=== PATIENT | female | born 1950 | race Caucasian/White ===

== ENCOUNTER 2016-11-11 13:21 | Emergency (ER) | payer MEDICARE, BC ==
[2016-11-11] MEDS ORDERED: Aspirin 81 MG Tab.Chew PO ONE (13:26)
[2016-11-11] MEDS ORDERED: Sodium Chloride 0.9% 10 ML Syringe FLUSH PRN (13:26)
[2016-11-11] MEDS: Nitroglycerin 0.4 MG Tab.SL SL PRN ×3 (13:33→13:46)
[2016-11-11 13:47] VITALS: BP 140/73
[2016-11-11] MEDS ORDERED: Heparin Sodium 5,000 Units/ML Vial IVPUSH ONE (14:18)
[2016-11-11] MEDS ORDERED: Heparin Sodium/D5W 25,000 UNITS/500 ML BAG IV SCH (14:30)
[2016-11-11] MEDS ORDERED: Nitroglycerin/D5W 25 MG/250 ML BOTTLE IV SCH (14:30)
--- NOTE | 2016-11-11 14:44 | EDM.PDOC ---
ED HISTORY OF PRESENT ILLNESS - General Chief Complaint: Chest Pain Stated Complaint: CHEST PAIN Time Seen by Provider: 11/11/16 13:25 Source of Information: Reports: Patient, Family History Limitations: Reports: No limitations - History of Present Illness INITIAL COMMENTS - FREE TEXT/NARRATIVE: The patient presents with chest pain that started just before arrival. It is in the center of her chest and it is sharp. She has shortness of breath with it. She has no fever, chills or cough. She says this started on Saturday. She was doing lots of laundry and was taking it outside to hang it up. She had severe chest pain like this and laid down and it went away. She would have chest pain on and off when she exerted herself. This afternoon she just got back from her grandchild's first communion and the pain started. She has no heart problems. She has no HTN. She does have diabetes. She was on metformin but she quit taking it about a year ago. Timing/Duration: Reports: Minutes: Severity: severe Location, General: Reports: chest Quality: Reports: Sharp Improves with: Reports: None Worsens with: Reports: None Context, General: Reports: Other (She was sitting on the couch at a family gathering) Associated Symptoms (General): Reports: chest pain, shortness of breath. Denies : cough, fever/chills, nausea/vomiting - Related Data Allergies/ADRs: Allergies Allergy/AdvReac Type Severity Reaction Status Date / Time Corticosteroids Allergy Swollen Verified 08/13/16 09:51 [employer] (Glucocorticoids) Eyes Home Meds: Home Meds . [No Known Home Meds] 08/12/16 [History] Past Medical History HEENT History: Reports: Cataract, Impaired vision Gastrointestinal History: Reports: None Genitourinary History: Reports: None GM MOBILE History: Reports: - Infectious Disease History Infectious Disease History: Reports: Chicken pox, Measles, Shingles - Past Surgical History HEENT Surgical History: Reports: Cataract surgery, Tonsillectomy GI Surgical History: Reports: Colonoscopy Female Surgical History: Reports: D&C, Tubal ligation Social & Family History - Tobacco Use Smoking Status *Q: Never Smoker Years of Tobacco use: 2 Month Tobacco Last Used: 50 yrs ago - Caffeine Use Caffeine Use: Reports: Soda Other Caffeine Use: alot of coke - Alcohol Use Days Per Week of Alcohol Use: 0 - Recreational Drug Use Recreational Drug Use: No ED ROS GENERAL - Review of Systems Review Of Systems: See Below Constitutional: Reports: no symptoms HEENT: Reports: No symptoms Respiratory: Reports: Shortness of Breath Cardiovascular: Reports: Chest pain Endocrine: Reports: no symptoms GI/Abdominal: Reports: No symptoms : Reports: no symptoms Musculoskeletal: Reports: no symptoms Skin: Reports: no symptoms ED EXAM, GENERAL - Physical Exam Exam: See Below Exam Limited By: No limitations General Appearance: alert, moderate distress Ears: normal external exam Nose: normal inspection Head: atraumatic, normocephalic Neck: normal inspection Respiratory/Chest: no respiratory distress, lungs clear, normal breath sounds Cardiovascular: regular rate, rhythm, no edema, no murmur GI/Abdominal: soft, non tender, no organomegaly, no mass Back Exam: normal inspection Extremities: normal inspection EKG INTERPRETATION EKG Date: 11/11/16 Time: 13:24 Rhythm: NSR Rate (beats/min): 96 [place]: LAD-left axis deviation P-wave: present QRS: normal ST-T: normal QT: normal EKG Interpretation Comments: PAC Course - Vital Signs Last Recorded V/S: Last Vital Signs Temp 97.1 F 11/11/16 13:25 Pulse 94 11/11/16 13:25 Resp 24 H 11/11/16 13:25 BP 140/73 11/11/16 13:46 Pulse Ox 99 11/11/16 13:25 - Orders/Labs/Meds Orders: Active Orders 24 hr Category Date Time Status Cardiac Monitoring [RC] . DIRECTED Care 11/11/16 13:26 Active EKG Documentation Completion [RC] STAT Care 11/11/16 13:26 Active Oxygen Therapy [RC] PRN Care 11/11/16 13:26 Active Peripheral IV Care [RC] . DIRECTED Care 11/11/16 13:26 Active Chest 1V Frontal [CR] Stat Exams 11/11/16 13:27 Taken CBC W/O DIFF,HEMOGRAM [HEME] MOTH@0700 Lab 11/12/16 07:00 Ordered CBC W/O DIFF,HEMOGRAM [HEME] MOTH@0700 Lab 11/15/16 07:00 Ordered CBC W/O DIFF,HEMOGRAM [HEME] MOTH@0700 Lab 11/19/16 07:00 Ordered CBC W/O DIFF,HEMOGRAM [HEME] MOTH@0700 Lab 11/22/16 07:00 Ordered CBC W/O DIFF,HEMOGRAM [HEME] MOTH@0700 Lab 11/26/16 07:00 Ordered CBC W/O DIFF,HEMOGRAM [HEME] MOTH@0700 Lab 11/29/16 07:00 Ordered Heparin Sodium/D5W [Heparin 25,000 Units in D5W 500 ML] Med 11/11/16 14:30 Active 25,000 units in 500 ml IV TITRATE Nitroglycerin [Nitrostat] Med 11/11/16 13:26 Active 0.4 mg SL Q5M PRN Nitroglycerin/D5W [Nitroglycerin 25 MG/D5W 250 ML] Med 11/11/16 14:30 Active 25 mg in 250 ml IV TITRATE Sodium Chloride 0.9% [Saline Flush] Med 11/11/16 13:26 Active 10 ml FLUSH ASDIRECTED PRN Peripheral IV Insertion Adult [OM.PC] Stat Oth 11/11/16 13:26 Ordered Medication Orders Heparin Sodium/Dextrose (Heparin 25,000 Units In D5w 500 Ml) 25,000 units in 500 mls @ 19.686 mls/hr IV TITRATE MARQUES; 14 UNITS/KG/HR PRN Reason: Protocol Nitroglycerin/Dextrose (Nitroglycerin 25 Mg/D5w 250 Ml) 25 mg in 250 mls @ 3 mls/hr IV TITRATE MARQUES PRN Reason: Protocol Last Admin: 11/11/16 14:34 Dose: 3 mls/hr Nitroglycerin (Nitrostat) 0.4 mg SL Q5M PRN PRN Reason: Chest Pain Stop: 11/12/16 13:26 Last Admin: 11/11/16 13:46 Dose: 0.4 mg Admin: 11/11/16 13:40 Dose: 0.4 mg Admin: 11/11/16 13:33 Dose: 0.4 mg Sodium Chloride (Saline Flush) 10 ml FLUSH ASDIRECTED PRN PRN Reason: Keep Vein Open Last Admin: 11/11/16 13:37 Dose: 10 ml Labs: Laboratory Tests 11/11/16 11/11/16 11/11/16 Range/Units 13:30 13:30 13:30 WBC 11.53 H (3.98-10.04) K/mm3 RBC 5.81 H (3.98-5.22) M/mm3 Hgb 16.5 H (11.2-15.7) gm/L Hct 48.0 H (34.1-44.9) % MCV 82.6 (79.4-94.8) fl MCH 28.4 (25.6-32.2) pg MCHC 34.4 (32.2-35.5) g/dl RDW Std Deviation 38.6 (36.4-46.3) fL Plt Count 233 (182-369) K/mm3 MPV 11.1 (9.4-12.3) fl Neut % (Auto) 49.4 (34.0-71.1) % Lymph % (Auto) 39.6 (19.3-51.7) % [place] % (Auto) 10.0 (4.7-12.5) % Eos % (Auto) 0.4 L (0.7-5.8) Baso % (Auto) 0.3 (0.1-1.2) % Neut # (Auto) 5.69 (1.56-6.13) K/mm3 Lymph # (Auto) 4.57 H (1.18-3.74) K/mm3 [place] # (Auto) 1.15 H (0.24-0.36) K/mm3 Eos # (Auto) 0.05 (0.04-0.36) K/mm3 Baso # (Auto) 0.03 (0.01-0.08) K/mm3 D-Dimer, Quantitative 0.23 (0.19-0.59) mg/L Sodium 132 L (136-145) mEq/L Potassium 4.0 (3.5-5.1) mEq/L Chloride 95 L (98-107) mEq/L Carbon Dioxide 22 (21-32) mEq/L Anion Gap 19.0 H (5-15) BUN 14 (7-18) mg/dL Creatinine 1.1 H (0.55-1.02) mg/dL Est Cr Clr Drug Dosing TNP Estimated GFR (MDRD) 49 (>60) mL/min BUN/Creatinine Ratio 12.7 L (14-18) Glucose 472 H (80-115) mg/dL Calcium 10.3 H (8.5-10.1) mg/dL Total Bilirubin 0.5 (0.2-1.0) mg/dL AST 21 (15-37) U/L ALT 23 (14-59) U/L Alkaline Phosphatase 99 (46-116) U/L Troponin I 1.071 H* (0.00-0.056) ng/mL Total Protein 8.5 H (6.4-8.2) g/dl Albumin 4.1 (3.4-5.0) g/dl Globulin 4.4 gm/dL Albumin/Globulin Ratio 0.9 L (1-2) Meds: Medications Generic Name Dose Route Start Last Admin Trade Name Sarah PRN Reason Stop Dose Admin Heparin Sodium/Dextrose 25,000 units in 500 mls @ 19.686 mls/hr 11/11/16 14: 30 Heparin 25,000 Units In D5w 500 Ml IV TITRATE MARQUES Protocol 14 UNITS/KG/HR Nitroglycerin/Dextrose 25 mg in 250 mls @ 3 mls/hr 11/11/16 14:30 11/11/16 14 :34 Nitroglycerin 25 Mg/D5w 250 Ml IV 3 mls/hr TITRATE MARQUES Administration Protocol Nitroglycerin 0.4 mg 11/11/16 13:26 11/11/16 13:46 Nitrostat SL 11/12/16 13:26 0.4 mg Q5M PRN Administration Chest Pain Sodium Chloride 10 ml 11/11/16 13:26 11/11/16 13:37 Saline Flush FLUSH 10 ml ASDIRECTED PRN Administration Keep Vein Open Discontinued Medications Generic Name Dose Route Start Last Admin Trade Name Sarah PRN Reason Stop Dose Admin Aspirin 324 mg 11/11/16 13:26 11/11/16 13:33 Aspirin PO 11/11/16 13:27 324 mg ONETIME ONE Administration Heparin Sodium (Porcine) 5,000 units 11/11/16 14:18 11/11/16 14:30 Heparin Sodium IVPUSH 11/11/16 14:19 5,000 units ONETIME ONE Administration - Re-Assessments/Exams Free Text/Narrative Re-Assessment/Exam: 11/11/16 14:46 I followed the patient to the room. She was having significant chest pain. Her EKG showed a NSR with no acute changes. I ordered an IV saline lock, aspirin, and nitro 0.4mg Q 5min X 3. Her CXR looked good. Lab called and her troponin was elevated at 1.071. She is having a nonSTEMI. I repeated her EKG and there were no new changes. I ordered a nitro drip, heparin bolus and heparin drip. Her pain is nearly gone. She will need to go to [place] right away and see cardiology. I called [facility] in [place] and Dr Wiggins accepted the patient. Departure - Departure Time of Disposition: 15:00 Disposition: DC/Tfer to Acute Hospital 02 Reason for Transfer *Q: Other Condition: serious Clinical Impression: Acute myocardial infarction Qualifiers: Myocardial infarction ST status: non-ST elevation myocardial infarction Qualified Code(s): I21.4 - Non-ST elevation (NSTEMI) myocardial infarction Forms: ED Department Discharge - My Orders Last 24 Hours: My Active Orders 11/11/16 13:26 Cardiac Monitoring [RC] . DIRECTED EKG Documentation Completion [RC] STAT Oxygen Therapy [RC] PRN Peripheral IV Care [RC] . DIRECTED Nitroglycerin [Nitrostat] 0.4 mg SL Q5M PRN Sodium Chloride 0.9% [Saline Flush] 10 ml FLUSH ASDIRECTED PRN Peripheral IV Insertion Adult [OM.PC] Stat 11/11/16 13:27 Chest 1V Frontal [CR] Stat 11/11/16 14:30 Heparin Sodium/D5W [Heparin 25,000 Units in D5W 500 ML] 25,000 units in 500 ml IV TITRATE Nitroglycerin/D5W [Nitroglycerin 25 MG/D5W 250 ML] 25 mg in 250 ml IV TITRATE 11/12/16 07:00 CBC W/O DIFF,HEMOGRAM [HEME] MOTH@69911/15/16 07:00 CBC W/O DIFF,HEMOGRAM [HEME] MOTH@69911/19/16 07:00 CBC W/O DIFF,HEMOGRAM [HEME] MOTH@69911/22/16 07:00 CBC W/O DIFF,HEMOGRAM [HEME] MOTH@69911/26/16 07:00 CBC W/O DIFF,HEMOGRAM [HEME] MOTH@00 11/29/16 07:00 CBC W/O DIFF,HEMOGRAM [HEME] MOTH@07 - Assessment/Plan Last 24 Hours: My Active Orders 11/11/16 13:26 Cardiac Monitoring [RC] . DIRECTED EKG Documentation Completion [RC] STAT Oxygen Therapy [RC] PRN Peripheral IV Care [RC] . DIRECTED Nitroglycerin [Nitrostat] 0.4 mg SL Q5M PRN Sodium Chloride 0.9% [Saline Flush] 10 ml FLUSH ASDIRECTED PRN Peripheral IV Insertion Adult [OM.PC] Stat 11/11/16 13:27 Chest 1V Frontal [CR] Stat 11/11/16 14:30 Heparin Sodium/D5W [Heparin 25,000 Units in D5W 500 ML] 25,000 units in 500 ml IV TITRATE Nitroglycerin/D5W [Nitroglycerin 25 MG/D5W 250 ML] 25 mg in 250 ml IV TITRATE 11/12/16 07:00 CBC W/O DIFF,HEMOGRAM [HEME] MOTH@0700 11/15/16 07:00 CBC W/O DIFF,HEMOGRAM [HEME] MOTH@0711/19/16 07:00 CBC W/O DIFF,HEMOGRAM [HEME] MOTH@69911/22/16 07:00 CBC W/O DIFF,HEMOGRAM [HEME] MOTH@0700 11/26/16 07:00 CBC W/O DIFF,HEMOGRAM [HEME] MOTH@0700 11/29/16 07:00 CBC W/O DIFF,HEMOGRAM [HEME] MOTH@07
--- NOTE | 2016-11-11 16:49 | CR ---
Chest: Portable view of the chest was obtained. Comparison: No previous study. Heart size and mediastinum are normal. Lungs are clear. Right hemidiaphragm is mildly elevated which is felt to be incidental. Bony structures are grossly intact but show minimal scoliosis. Impression: 1. Nothing acute is identified on portable chest x-ray. Diagnostic code #2
== END 2016-11-11 15:08 ==
LOC: JD.ED 13:21
DX: I21.4 Non-ST elevation (NSTEMI) myocardial infarction (principal); Z88.8 Allergy status to other drugs, medicaments and biological substances
CPT/HCPCS: 36415; 71010; 80053; 84484; 85025; 85379; 93005; 96365; 96368; 96375; 99285; A9270; J1644; J7050; 99284